=== PATIENT | female | born 1940 | race Caucasian/White ===

== ENCOUNTER → 2022-01-24 11:38 | Outpatient (CLI) | payer MEDICARE, SELFPAY | PROVIDERS: Referring Provider Internal Medicine; Visit Provider Internal Medicine | DX: R19.7 Diarrhea, unspecified (principal); R19.5 Other fecal abnormalities | CPT/HCPCS: 87177; 87329 ==

== ENCOUNTER → 2022-02-05 17:12 | Outpatient (CLI) | payer MEDICARE, SELFPAY ==
[2022-02-05 18:44] LABS: BUN Creatinine Ratio 31.9 (6-22); Blood Urea Nitrogen 23 mg/dL (7-17); Calcium 9.5 mg/dL (8.4-10.2); Carbon Dioxide 27 mmol/L (22-32); Chloride 102 mmol/L (98-107); Estimated Glomerular Filt Rate > 60 mL/min (>60); Glucose 97 mg/dL (80-110); HEMOLYSIS < 15 (0-50); Magnesium 1.7 mg/dL (1.6-2.3); Potassium 4.2 mmol/L (3.4-5.1); Sodium 140 mmol/L (137-145)
[2022-02-05 19:15] LABS: TSH w/ Reflex to FT4 1.63 uIU/mL (0.47-4.68)
== END ==
PROVIDERS: Referring Provider Internal Medicine Cardiovascular Disease; Visit Provider Internal Medicine Cardiovascular Disease
DX: E83.42 Hypomagnesemia (principal); I49.9 Cardiac arrhythmia, unspecified; I47.29 Other ventricular tachycardia
CPT/HCPCS: 36415; 80048; 83735; 84443

== ENCOUNTER 2022-09-13 09:13 | Emergency (ER) | payer MEDICARE, SELFPAY ==
--- NOTE | 2022-09-13 09:16 | DI.CT.S_ITS ---
PROCEDURE: CT HEAD/BRAIN WO CON INDICATIONS: fall, head injury, eliquis TECHNIQUE: Noncontrast 4.5 mm thick angled axial sections acquired from the foramen magnum to the vertex, with coronal and sagittal reformats. For radiation dose reduction, the following was used: automated exposure control, adjustment of mA and/or kV according to patient size. COMPARISON: None. FINDINGS: Image quality: Excellent. CSF spaces: Basal cisterns are patent. No extra-axial fluid collections. Ventricles are normal in size and shape. Brain: No midline shift. No intracranial masses or hemorrhage. Sandhu-white matter interface is normal. Moderate cerebral and cerebellar volume loss with multifocal white matter chronic ischemic change noted. Atherosclerotic calcification noted associated with cavernous segments of both internal carotid arteries. Skull and face: Calvarium and visualized facial bones are intact, without suspicious lesions. Sinuses: Visualized sinuses and mastoids are clear. IMPRESSION: Atrophy and chronic ischemic change without intracranial hemorrhage or mass effect Approved by: Hernan Rodriguez M.D. on 09/13/2022 at 9:16
[2022-09-13 09:22] VITALS: BP 96/45; PULSE 64; PULSE 66; RESP 14; TEMP 36.5
[2022-09-13 09:31] VITALS: PULSE 64; O2SAT 99
[2022-09-13 09:40] LABS: Add Manual Diff / Slide Review NO; Basophils Absolute Auto 0 /uL (0-100); Basophils Percent Auto 0.9 % (0-2); Eosinophils Absolute Auto 200 /uL (0-450); Eosinophils Percent Auto 5.1 % (2-4); Hematocrit 32.5 % (36-46); Hemoglobin 10.8 g/dL (12.0-16.0); Lymphocytes Absolute Auto 1000 /uL (1100-4500); Lymphocytes Percent Auto 22.4 % (25-40); Mean Corpuscular HGB Conc 33.2 % (30-36); Mean Corpuscular Hemoglobin 28.6 PG (26-34); Monocytes Absolute Auto 400 /uL (0-900); Monocytes Percent Auto 9.9 % (3-14); Neutrophils Absolute Auto 2800 /uL (1500-7000); Neutrophils Percent Auto 61.7 % (50-75); Platelet Count 147 X10^3/uL (150-400); Red Blood Cell Count 3.78 X10^6/uL (4.0-5.2); Red Cell Distribution Width 15.3 % (11.6-14.8); White Blood Cell Count 4.5 X10^3/uL (4.5-11.0)
--- NOTE | 2022-09-13 09:42 | ED_ITS ---
HPI - Fall General Chief Complaint: Fall Stated Complaint: Fall Time Seen by Provider: 09/13/22 09:14 Source: EMS Mode of arrival: EMS History of Present Illness HPI Narrative: 81-year-old female nonsmoker with history of AFib on anticoagulation comes by EMS for evaluation of a fall with head injury. She harry had less sleep than normal and was up packing for an upcoming trip when she tripped and fell striking the right side of her forehead. She is full recall of the event and denies any loss of consciousness, blurred vision, vomiting or trouble with speech. She has no neck or back pain. She denies chest pain or shortness of breath. She denies nausea, vomiting or diarrhea. She is activated as a modified trauma given fall with head injury on thinners Related Data Previous Rx's Medication Instructions Recorded cephalexin 500 mg capsule 500 mg PO BID #10 caps 09/13/22 Review of Systems Review of Systems Narrative: GENERAL: Denies chills, fatigue, malaise, fever, sweats. HEENT: Denies sinus pain, ear pain, sore throat, difficulty swallowing, dizziness. RESPIRATORY: Denies dyspnea, cough, wheezing, hemoptysis, sputum. CARDIOVASCULAR: Denies chest pain, palpitations, orthopnea, edema, GASTROINTESTINAL: Denies nausea, vomiting, abdominal pain, diarrhea, cons tipation, melena. : Denies dysuria, frequency, incontinence, hematuria, urinary retention. MUSCULOSKELETAL: denies weakness, joint pain, or bony pain SKIN: Denies rash, skin lesions, or other NEUROLOGIC: Denies weakness, headache, numbness, change in speech, confusion, seizures, incoordination. PSYCHIATRIC: No concerning psychosocial issues. 12 point review of systems is negative except for those stated above Patient History Social History Smoking Status: Unknown if ever smoked Smoking Status: Unknown if ever smoked Exam Narrative Exam Narrative: GENERAL: [81] year old patient appears stated age. Well-developed patient, in mild distress. GCS 15 HEAD: Small contusion over right eye, no large hematoma, no other abrasions or lacerations, no evidence of depressed skull fracture EYES: Pupils equal round and reactive. No hyphema Extraocular motions intact. No scleral icterus. No injection or drainage. ENT: Nose without bleeding, purulent drainage. No nasal septal hematoma or hemotympanum Throat without erythema, tonsillar hypertrophy or exudate. Airway patent. NECK: Trachea midline. Non tender CARDIOVASCULAR: Regular rate and rhythm without murmurs, gallops, or rubs. RESPIRATORY: Clear to auscultation. Breath sounds equal bilaterally. No wheezes, rales, or rhonchi. GASTROINTESTINAL: Abdomen soft, non-tender, nondistended. EXTREMITIES: No edema or joint tenderness. BACK: Nontender without deformity or crepitance. No flank tenderness. NEURO: AOx3. SKIN: No rash or erythema of visible areas Initial Vital Signs Initial Vital Signs: Vital Signs Temperature 97.7 F 09/13/22 09:22 Pulse Rate 66 09/13/22 09:22 Respiratory Rate 14 09/13/22 09:22 Blood Pressure 96/45 L 09/13/22 09:22 Course Orders Ordered: ED Orders 09/13/22 11:24 Urine Culture Stat Urine Microscopic Stat Discontinued Medications Sodium Chloride (Normal Saline 0.9%) 500 mls @ 1,000 mls/hr IV BOLUS ONE Stop: 09/13/22 09:45 Last Admin: 09/13/22 10:08 Dose: 1,000 mls/hr Documented By: NR Vital Signs Vital signs: Vital Signs - 8 hr 09/13/22 12:21 Pulse Rate 88 Respiratory Rate 14 Blood Pressure 113/65 Pulse Oximetry 96 Oxygen Delivery Method Room Air MDM - Fall Lab Data 09/13/22 09:10 09/13/22 09:10 Labs: Lab Results 09/13/22 09/13/22 09/13/22 Range/Units 09:10 09:10 11:24 WBC 4.5 (4.5-11.0) X10^3/uL RBC 3.78 L (4.0-5.2) X10^6/uL Hgb 10.8 L (12.0-16.0) g/dL Hct 32.5 L (36-46) % MCV 86.0 (80-100) fL MCH 28.6 (26-34) PG MCHC 33.2 (30-36) % RDW 15.3 H (11.6-14.8) % Plt Count 147 L (150-400) X10^3/uL Neut % (Auto) 61.7 (50-75) % Lymph % (Auto) 22.4 L (25-40) % Cook % (Auto) 9.9 (3-14) % Eos % (Auto) 5.1 H (2-4) % Baso % (Auto) 0.9 (0-2) % Neut # (Auto) 2800 (9825-6217) /uL Lymph # (Auto) 1000 L (8468-3210) /uL Cook # (Auto) 400 (0-900) /uL Eos # (Auto) 200 (0-450) /uL Baso # (Auto) 0 (0-100) /uL Sodium 137 (137-145) mmol/L Potassium 4.4 (3.4-5.1) mmol/L Chloride 104 (98-107) mmol/L Carbon Dioxide 28 (22-32) mmol/L BUN 31 H (7-17) mg/dL Creatinine 0.80 (0.52-1.04) mg/dL Estimated GFR > 60 (>60) mL/min BUN/Creatinine Ratio 38.8 H (6-22) Glucose 114 H (80-110) mg/dL Calcium 9.1 (8.4-10.2) mg/dL Magnesium 2.0 (1.6-2.3) mg/dL Total Bilirubin 0.6 (0.2-1.3) mg/dL AST 28 (14-36) IU/L ALT 21 (<35) IU/L Alkaline Phosphatase 51 (38-126) U/L Total Protein 6.4 (6.3-8.2) g/dL Albumin 3.8 (3.5-5.0) g/dL Globulin 2.6 (1.7-4.1) g/dL Albumin/Globulin Ratio 1.5 (1.0-2.8) Urine RBC 1-5/hpf (0-5/HPF) Urine WBC 5-10/hpf H (0-5/HPF) Ur Squamous Epith Cells 0-1 /hpf (0-5/HPF) Ur Transition Epith Cell 0-1/hpf (0-5/HPF) Amorphous Sediment 1+ Urine Bacteria Many (>30) H (None) Ur Culture Indicated? Specimen cultured Urine Dip Bedside Urine Glucose Negative Bedside Urine Bilirubin - Negative Bedside Urine Ketone - Negative Urine Specific Bradford 1.020 Bedside Urine Occult Blood + Bedside Urine pH 6.0 Bedside Urine Protein - Negative Bedside Urine Urobilinogen - Negative Bedside Urine Nitrite + Positive Bedside Urine Leukocytes ++ 125 Esterase MDM Narrative Medical decision making narrative: CC: 81-year-old female presents for evaluation of fall with head injury on thinners Complicating co-morbidities: Age, atrial fibrillation, anticoagulation Data collected from: Patient Medical records reviewed: Prior notes reviewed in our EMR Differential considered, but not limited to: Contusion versus hematoma versus intracranial hemorrhage versus other Exam documented above, pertinent findings include: GCS 15, alert and oriented x3, mild contusion above right eye Lab Test results independently reviewed as above. Pertinent findings: Independently reviewed EKG as above Imaging studies independently reviewed: Head CT with no evidence of bleed Discussion: Patient had unwitnessed ground level fall this morning when she was bending over trying to pack for an upcoming trip. She struck her head on the ground and is anticoagulated but had no loss of consciousness or vomiting, no other neurologic symptoms, imaging is unremarkable, she is ambulatory in the department in at baseline per family. Disposition: see below, along with detailed discharge instructions that have been reviewed with patient as well as indications for ED re-evaluation and additional outpatient follow up Discharge Plan Departure Patient Disposition: Home Clinical Impression: Acute UTI, Fall, Contusion of forehead Instructions: DI for Urinary Tract Infection (UTI), How to Prevent Falls Activity Restrictions/Additional Instructions: *You have been diagnosed with [ fall with forehead contusion and urinary tract infection. As we discussed your lab work and imaging is otherwise very reassuring] *What to do: *Please continue to take your regular medications as directed. [ x] New medication prescriptions sent to your pharmacy: [[facility] ] [ ] New medication written as a paper prescription [ ] No new medications given *Please follow up with your primary care provider in 2-3 days, call for an appointment. Let them know you were seen in the Emergency Department and that we ask that you be seen in follow up. We will electronically transmit a record of today's note if your PCP is in our system *If you do not have a primary care provider please contact the [facility] Resource line at [phone]. They will ask some questions about your medical history and help get you set up with a doctor in the community. *Return to Emergency Department if you should have any new, worsening or concerning symptoms, such as [fever greater than 101 F, shaking chills, worsening pain, persistent vomiting or other bothersome symptoms] Prescriptions: New cephalexin 500 mg capsule 500 mg PO BID Qty: 10 0RF Referrals: Miscellaneous,Doctor, MD [Primary Care Provider] - Stand Alone Forms: Patient Portal/API
[2022-09-13 09:50] LABS: Alanine Aminotransferase 21 IU/L (<35); Albumin 3.8 g/dL (3.5-5.0); Albumin Globulin Ratio 1.5 (1.0-2.8); Alkaline Phosphatase 51 U/L (38-126); Aspartate Aminotransferase 28 IU/L (14-36); BUN Creatinine Ratio 38.8 (6-22); Bilirubin Total 0.6 mg/dL (0.2-1.3); Blood Urea Nitrogen 31 mg/dL (7-17); Calcium 9.1 mg/dL (8.4-10.2); Carbon Dioxide 28 mmol/L (22-32); Chloride 104 mmol/L (98-107); Estimated Glomerular Filt Rate > 60 mL/min (>60); Globulin 2.6 g/dL (1.7-4.1); Glucose 114 mg/dL (80-110); HEMOLYSIS < 15 (0-50); Potassium 4.4 mmol/L (3.4-5.1); Sodium 137 mmol/L (137-145); Total Protein 6.4 g/dL (6.3-8.2)
[2022-09-13 10:00] VITALS: PULSE 62; RESP 12; O2SAT 100
[2022-09-13] MEDS: SODIUM CHLORIDE 0.9% 500 ML 1000 ML IV (10:08)
[2022-09-13 10:30] VITALS: PULSE 64; RESP 10; O2SAT 99
[2022-09-13 11:20] VITALS: BP 102/50; BP 104/59; BP 113/55; PULSE 70; PULSE 74; PULSE 79
[2022-09-13 11:46] LABS: Bacteria Urine Many (>30); RBC Urine 1-5/HPF (0-5/HPF); Squamous Epithelial Cell Urine 0-1 /HPF (0-5/HPF); WBC Urine 5-10/HPF (0-5/HPF)
[2022-09-13 11:47] LABS: Amorphous Sediment Urine 1+; Culture Indicated Urine Specimen Cultured; Transitional Epi Cells Urine 0-1/HPF (0-5/HPF)
--- NOTE | 2022-09-13 11:55 | PC.NURSE ---
Patient ambulated with walker
[2022-09-13 12:21] VITALS: BP 113/65; PULSE 88; RESP 14; O2SAT 96
== END 2022-09-13 12:22 | disposition home or self-care (01) ==
PROVIDERS: Emergency Provider Emergency Medicine
DX: S00.83XA Contusion of other part of head, initial encounter (principal); N39.0 Urinary tract infection, site not specified; R07.9 Chest pain, unspecified; W01.0XXA Fall on same level from slipping, tripping and stumbling without subsequent striking against object, initial encounter
CPT/HCPCS: 70450; 80053; 81003; 81015; 83735; 85025; 87077; 87086; 87186; 93005; 99283

== ENCOUNTER → 2023-04-06 12:43 | Outpatient (CLI) | payer OTHER, SELFPAY ==
[2023-04-06 13:26] LABS: Add Manual Diff / Slide Review NO; Basophils Absolute Auto 0 /uL (0-100); Basophils Percent Auto 0.6 % (0-2); Eosinophils Absolute Auto 100 /uL (0-450); Eosinophils Percent Auto 1.5 % (2-4); Hemoglobin 11.6 g/dL (12.0-16.0); Lymphocytes Absolute Auto 900 /uL (1100-4500); Lymphocytes Percent Auto 12.1 % (25-40); Mean Corpuscular HGB Conc 33.2 % (30-36); Mean Corpuscular Hemoglobin 30.3 PG (26-34); Mean Corpuscular Volume 91.2 fL (80-100); Monocytes Absolute Auto 300 /uL (0-900); Monocytes Percent Auto 4.1 % (3-14); Neutrophils Absolute Auto 6400 /uL (1500-7000); Neutrophils Percent Auto 81.7 % (50-75); Platelet Count 173 X10^3/uL (150-400); Red Blood Cell Count 3.84 X10^6/uL (4.0-5.2); Red Cell Distribution Width 17.5 % (11.6-14.8); White Blood Cell Count 7.8 X10^3/uL (4.5-11.0)
[2023-04-06 13:47] LABS: Hemoglobin A1C% w Est Avg Glu 8.8 % (4.0-6.0)
[2023-04-06 13:50] LABS: Alanine Aminotransferase 24 IU/L (<35); Albumin Globulin Ratio 1.4 (1.0-2.8); Alkaline Phosphatase 59 U/L (38-126); Aspartate Aminotransferase 23 IU/L (14-36); BUN Creatinine Ratio 21.2 (6-22); Blood Urea Nitrogen 18 mg/dL (7-17); Calcium 9.6 mg/dL (8.4-10.2); Carbon Dioxide 26 mmol/L (22-32); Chloride 103 mmol/L (98-107); Cholesterol 153 mg/dL (140-199); Estimated Glomerular Filt Rate > 60 mL/min (>60); Globulin 2.8 g/dL (1.7-4.1); Glucose 222 mg/dL (80-110); HDL Cholesterol 64 mg/dL (40-60); HEMOLYSIS < 15 (0-50); LDL Cholesterol Calculated 65 mg/dL (<100); Magnesium 1.9 mg/dL (1.6-2.3); Sodium 137 mmol/L (137-145); Total Protein 6.8 g/dL (6.3-8.2); Triglycerides 119 mg/dL (35-150)
[2023-04-06 13:52] LABS: Potassium 5.5 mmol/L (3.4-5.1)
[2023-04-06 14:21] LABS: TSH w/ Reflex to FT4 1.16 uIU/mL (0.47-4.68)
[2023-04-06 14:37] LABS: Vitamin B12 608 pg/mL (239-931)
[2023-04-06 14:47] LABS: Creatinine Urine Random 59.7 mg/dL
[2023-04-06 14:52] LABS: Microalbumi Creatinin Ratio Ur 194.3 ug/mg CR (<30); Microalbumin Urine Random 11.6 mg/dL (0-1.6)
[2023-04-06 15:03] LABS: Vitamin D 25 Hydroxy (D3) 52.2 ng/mL (30.0-100.0)
== END ==
PROVIDERS: PCP Family Medicine; Referring Provider Family Medicine; Visit Provider Family Medicine
DX: R53.83 Other fatigue (principal); E11.9 Type 2 diabetes mellitus without complications; K52.839 Microscopic colitis, unspecified; F32.A Depression, unspecified; R19.7 Diarrhea, unspecified; I50.20 Unspecified systolic (congestive) heart failure; I25.10 Atherosclerotic heart disease of native coronary artery without angina pectoris; I49.9 Cardiac arrhythmia, unspecified; I48.91 Unspecified atrial fibrillation; E11.69 Type 2 diabetes mellitus with other specified complication
CPT/HCPCS: 36415; 80053; 80061; 82043; 82306; 82570; 82607; 83036; 83735; 84443; 85025

== ENCOUNTER → 2023-04-13 12:59 | Outpatient (CLI) | payer OTHER, SELFPAY ==
[2023-04-13 14:05] LABS: BUN Creatinine Ratio 27.8 (6-22); Blood Urea Nitrogen 30 mg/dL (7-17); Calcium 9.6 mg/dL (8.4-10.2); Carbon Dioxide 26 mmol/L (22-32); Chloride 103 mmol/L (98-107); Estimated Glomerular Filt Rate 52 mL/min (>60); Glucose 211 mg/dL (80-110); HEMOLYSIS < 15 (0-50); Potassium 4.6 mmol/L (3.4-5.1); Sodium 136 mmol/L (137-145)
[2023-04-13 14:54] LABS: Ur Creatinine Normal (Normal); Ur Specific Gravity Normal (Normal); Urine pH Normal (Normal)
[2023-04-13 14:55] LABS: UR Morphine/Opiate cutoff 300 Negative (Negative); Urine Amphetamines Negative (Negative); Urine Cocaine Negative (Negative); Urine Methamphetamines Negative (Negative); Urine Tetrahydrocannabinol Negative (Negative)
[2023-04-13 14:56] LABS: Urine Barbiturates Negative (Negative); Urine Benzodiazepines Negative (Negative); Urine MDMA Negative (Negative); Urine Methadone Negative (Negative); Urine Oxycodone Positive (Negative); Urine Phencyclidine Negative (Negative); Urine Tricyclic Antidepressant Negative (Negative)
== END ==
PROVIDERS: PCP Family Medicine; Referring Provider Family Medicine; Visit Provider Family Medicine
DX: M54.2 Cervicalgia (principal); E87.5 Hyperkalemia; E11.9 Type 2 diabetes mellitus without complications; G89.29 Other chronic pain
CPT/HCPCS: 80048; 80305

== ENCOUNTER → 2023-07-06 12:24 | Outpatient (CLI) | payer OTHER, SELFPAY ==
--- NOTE | 2023-07-06 12:25 | DI.ECHO.S_ITS ---
[facility]+ [facility] : : [address] : : [place] : : [id number] : : Phone: [phone] Echocardiogram Report + + :Name: KAY SIFUENTES Study Date: 07/06/2023 Height: 59 in : :[facility] ReadingLocation: Weight: 122 lb : : Gender: Female BSA: 1.5 m2 : :: 1940 Age: 82 yrs BP: 113/68 mmHg: :Reason For Study: CORONARY ARTERY DISEASE : :Ordering Physician: MAGDALENE CHAKRABORTY Performed By: Je Morelos : :Referring: MAGDALENE CHAKRABORTY : + + Interpretation Summary 1. The left ventricular contractility is severely compromised. Estimated ejection fraction is approximately 25 to 30% with global hypokinesis. No left ventricular hypertrophy is identified. Grade 1 diastolic dysfunction is appreciated. 2. The right ventricular contractility appears to be mildly compromised. 3. There is left atrial enlargement present. All other cardiac chambers appears to be grossly normal. 4. There is moderate fibrocalcific changes of the aortic valve involving the noncoronary cusp. Mean aortic valvular gradient was 8.8 mmHg. 5. No obvious intracardiac shunts noted. 6. No obvious intracardiac masses nor thrombi appreciated. 7. No hemodynamically significant pericardial effusion identified. Conclusion: Biventricular systolic dysfunction with no significant valvular abnormalities. Paroxysmal atrial fibrillation noted. Procedure: A two-dimensional transthoracic echocardiogram with color flow and Doppler was performed. The study quality was technically adequate. There is no prior echocardiogram noted for this patient. The patient was in atrial fibrillation with heart rates between 60-84 bpm during the exam. Left Ventricle: The left ventricle is normal in size and wall thickness. The ejection fraction is estimated to be 25-30%. Right Ventricle: The right ventricle is not well visualized. Right ventricular systolic function is mildly reduced. Atria: The left atrium is mildly dilated. Right atrial size is normal. The interatrial septum grossly appears intact with no obvious evidence for an atrial septal defect. Mitral Valve: The mitral valve is normal in structure and function. There is no mitral valve stenosis. There is trace mitral regurgitation. Aortic Valve: There is moderate aortic valve sclerosis. There is mild aortic stenosis. The peak aortic velocity is 2.02 m/sec. The aortic valve mean gradient is 8.8 mmHg. No aortic regurgitation is present. Tricuspid Valve: The tricuspid valve is not well visualized, but is grossly normal. There is no tricuspid stenosis. There is trace tricuspid regurgitation. The right ventricular systolic pressure is estimated to be at least 23 mmHg based on an estimated right atrial pressure of 3 mm Hg. Pulmonic Valve: The pulmonic valve is not well visualized. There is no pulmonic valvular stenosis. There is a trace or physiologic amount of pulmonic regurgitation. Great Vessels: The aortic root is normal size. The dimensions of the ascending aorta are normal. The IVC is of normal diameter and collapses greater than 50% with a sniff. This suggests a low right atrial pressure of 3 mm Hg. Pericardium/ Pleura There is no pericardial effusion. There is no pleural effusion. MMode/2D Measurements & Calculations LVIDd: 4.9 cm LVOT diam: 1.7 cm LVIDs: 4.3 cm Ao root diam: 2.8 cm FS: 12.3 % asc Aorta Diam: 2.8 cm IVSd: 0.75 cm Ao Arch Diam (Prox Trans): 2.3 cm LVPWd: 0.70 cm LV moore. diameter/BSA (cm/m^2): 3.3 LV sys. diameter/BSA (cm/m^2): 2.9 LA A2 area: 17.0 cm2 RA long axis: 4.5 cm LA A4 area: 16.4 cm2 RA area: 10.8 cm2 LA length (vol): 4.6 cm RA vol: 22.0 ml LA vol: 51.9 ml RA : 14.7 ml/m2 LA vol index: 34.7 ml/m2 IVC diam: 1.6 cm TAPSE: 1.6 cm Doppler Measurements & Calculations Ao V2 max: 201.9 cm/sec LVOT Max Jorge: 99.9 cm/sec Ao V2 mean: 141.0 cm/sec LV V1 max P.1 mmHg Ao max P.6 mmHg LV V1 VTI: 21.8 cm Ao mean P.8 mmHg DUSTIN(I,D): 1.1 cm2 Ao V2 VTI: 44.4 cm DUSTIN(V,D): 1.2 cm2 sev ratio: 0.49 DUSTIN indexed to BSA (cm^2/m^2): 0.77 MV E max jorge: 57.8 cm/sec TR max jorge: 224.1 cm/sec MV A max jorge: 87.2 cm/sec TR max P.1 mmHg MV E/A: 0.66 PA V2 max: 70.7 cm/sec Med Peak E' Jorge: 4.7 cm/sec PA V2 mean: 51.3 cm/sec E/E' med: 12.4 PA mean P.1 mmHg Lat Peak E' Jorge: 4.8 cm/sec PA pr(Accel): 32.8 mmHg E/E' lat: 12.1 E/e' average: 12.2 MV dec time: 0.17 sec SV(LVOT): 50.9 ml Reading Physician:
== END ==
LOC: ECHO 12:24
PROVIDERS: PCP Family Medicine; Referring Provider Internal Medicine; Visit Provider Internal Medicine
DX: I50.22 Chronic systolic (congestive) heart failure (principal); I35.8 Other nonrheumatic aortic valve disorders; I35.0 Nonrheumatic aortic (valve) stenosis
CPT/HCPCS: 93306

== ENCOUNTER → 2023-07-07 10:10 | Outpatient (CLI) | payer OTHER, SELFPAY ==
[2023-07-07 11:17] LABS: Add Manual Diff / Slide Review NO; Basophils Absolute Auto 0 /uL (0-100); Basophils Percent Auto 0.4 % (0-2); Eosinophils Absolute Auto 100 /uL (0-450); Eosinophils Percent Auto 0.9 % (2-4); Hematocrit 39.9 % (36-46); Hemoglobin 13.1 g/dL (12.0-16.0); Lymphocytes Absolute Auto 1600 /uL (1100-4500); Lymphocytes Percent Auto 16.2 % (25-40); Mean Corpuscular HGB Conc 32.7 % (30-36); Mean Corpuscular Hemoglobin 30.9 PG (26-34); Mean Corpuscular Volume 94.4 fL (80-100); Monocytes Absolute Auto 600 /uL (0-900); Monocytes Percent Auto 5.7 % (3-14); Neutrophils Absolute Auto 7500 /uL (1500-7000); Neutrophils Percent Auto 76.8 % (50-75); Platelet Count 198 X10^3/uL (150-400); Red Blood Cell Count 4.22 X10^6/uL (4.0-5.2); Red Cell Distribution Width 14.6 % (11.6-14.8); White Blood Cell Count 9.7 X10^3/uL (4.5-11.0)
[2023-07-07 12:31] LABS: Alanine Aminotransferase 20 IU/L (<35); Albumin 4.6 g/dL (3.5-5.0); Alkaline Phosphatase 53 U/L (38-126); Aspartate Aminotransferase 24 IU/L (14-36); BUN Creatinine Ratio 30.1 (6-22); Bilirubin Total 1.1 mg/dL (0.2-1.3); Blood Urea Nitrogen 34 mg/dL (7-17); Calcium 9.5 mg/dL (8.4-10.2); Carbon Dioxide 22 mmol/L (22-32); Chloride 106 mmol/L (98-107); Cholesterol 106 mg/dL (140-199); Estimated Glomerular Filt Rate 49 mL/min (>60); Globulin 2.3 g/dL (1.7-4.1); Glucose 154 mg/dL (80-110); HDL Cholesterol 57 mg/dL (40-60); HEMOLYSIS < 15 (0-50); LDL Cholesterol Calculated 22 mg/dL (<100); Potassium 5.2 mmol/L (3.4-5.1); Sodium 137 mmol/L (137-145); Total Protein 6.9 g/dL (6.3-8.2); Triglycerides 136 mg/dL (35-150)
[2023-07-07 12:40] LABS: HEMOLYSIS < 15 (0-50); Iron 74 ug/dL (37-170)
[2023-07-07 12:52] LABS: Percent Iron Saturation 18 % (15-50); Total Iron Binding Capacity 404 ug/dL (265-497); Transferrin 315 mg/dL (206-381)
== END ==
PROVIDERS: PCP Family Medicine; Referring Provider Internal Medicine; Visit Provider Internal Medicine
DX: I48.0 Paroxysmal atrial fibrillation (principal); E11.9 Type 2 diabetes mellitus without complications; I25.118 Atherosclerotic heart disease of native coronary artery with other forms of angina pectoris; D64.9 Anemia, unspecified
CPT/HCPCS: 36415; 80053; 80061; 83036; 83540; 83550; 84443; 85025

== ENCOUNTER → 2023-07-28 10:41 | Outpatient (CLI) | payer OTHER, SELFPAY ==
--- NOTE | 2023-07-28 10:43 | DI.NM.S_ITS ---
PROCEDURE: NM JESUS PERF SPECT R&S PHARM Rest and pharmacological stress myocardial perfusion SPECT with gated imaging and ejection fraction RADIOPHARMACEUTICAL: 12.2 mCi Tc-99m tetrafosmin IV at rest and 25.4 mCi Tc-99m tetrafosmin IV at peak effect of pharmacological stress. A [id number] was performed. INDICATIONS: [facility] coronary artery disease TECHNIQUE: Radiopharmaceutical was injected at peak stress test, and also at rest. SPECT images were obtained. SPECT myocardial perfusion images were displayed in short axis, horizontal long axis, and vertical long axis views. Gated images were reviewed using [employer] software. COMPARISON: None. CARDIAC STRESS: A pharmacologic stress test was performed under the supervision of an attending staff, using an infusion of regadenoson 0.4 mg IV. Hemodynamic data: There is normal blood pressure and heart rate response to pharmacologic stress. Symptoms: The patient denied anginal chest pain. EKG: No diagnostic changes of ischemia; occasional PVCs. FINDINGS: Raw data: There is good myocardial uptake of radiotracer. No significant motion artifacts. The raw images demonstrate significant bowel uptake of the tracer along with diaphragmatic attenuation. Vrth-oj-jizlb ratio is 0.44 (normal is less than 0.38 for tetrafosmin tracer). Left ventricle function: Gated images demonstrate normal left ventricular wall thickening however the LV size and shape are altered due to bowel uptake of the tracer near the inferior wall making determination of segmental wall motion abnormalities difficult. No transient ischemic dilation; TID is 0.73 (normal less than 1.3). Left ventricle resting end diastolic volume is 142 mL. Left ventricle stress ejection fraction is 59%; normal range is above 45%. Myocardial perfusion: There is a large size, moderate to severe intensity inferior, inferolateral and apical wall defect. No reversible perfusion defects. IMPRESSION: Abnormal but very poor quality study. The large size, moderate to severe intensity inferior, inferolateral and apical wall defect may be consistent with prior infarction however there is significant bowel uptake and diaphragmatic attenuation near these henning. Unfortunately, no prone images were obtained. LV size and segmental wall motion are difficult to assess due to artifacts. Dictated by: Maylin Delgado D.O. on 07/28/2023 at 16:15 Approved by: Maylin Delgado D.O. on 07/28/2023 at 16:21
== END ==
LOC: NUCM 10:41
PROVIDERS: PCP Family Medicine; Referring Provider Internal Medicine; Visit Provider Internal Medicine
DX: I25.118 Atherosclerotic heart disease of native coronary artery with other forms of angina pectoris (principal); R94.39 Abnormal result of other cardiovascular function study
CPT/HCPCS: 78452; 93017; A9502; J2785

== ENCOUNTER → 2023-09-11 11:51 | Outpatient (CLI) | payer OTHER, SELFPAY ==
--- NOTE | 2023-09-11 11:52 | DI.RAD.S_ITS ---
PROCEDURE: XR CERVICAL SPINE 2V OR 3V INDICATIONS: neck pain TECHNIQUE: 4 view(s) of the cervical spine were acquired. COMPARISON: None. FINDINGS: Bones: No fractures. Grade 1 anterolisthesis of C5 on C6. Multilevel disc height loss and facet arthropathy. The lateral masses of C1 appear intact on the odontoid view. No suspicious bony lesions. Multilevel anterior disc osteophytes. The bones are diffusely osteopenic. Sternotomy wires are seen. Soft tissues: No prevertebral soft tissue swelling. Mediastinal clips are noted. Calcified aortic arch. The IMPRESSION: 1. No acute fracture. 2. Grade 1 anterolisthesis of C5 on C6. 3. Multilevel disc height loss and facet arthropathy. Dictated by: Garry Roth M.D. on 09/11/2023 at 15:06 Approved by: Garry Roth M.D. on 09/11/2023 at 15:13
== END ==
PROVIDERS: PCP Family Medicine; Referring Provider Family Medicine; Visit Provider Family Medicine
DX: M47.812 Spondylosis without myelopathy or radiculopathy, cervical region (principal); M43.12 Spondylolisthesis, cervical region; M54.2 Cervicalgia; G89.29 Other chronic pain
CPT/HCPCS: 72040

== ENCOUNTER → 2023-12-04 14:12 | Outpatient (CLI) | payer OTHER, SELFPAY ==
[2023-12-04 15:59] LABS: BUN Creatinine Ratio 25.5 (6-22); Blood Urea Nitrogen 25 mg/dL (7-17); Calcium 9.6 mg/dL (8.4-10.2); Carbon Dioxide 25 mmol/L (22-32); Chloride 102 mmol/L (98-107); Estimated Glomerular Filt Rate 58 mL/min (>60); Glucose 180 mg/dL (80-110); HEMOLYSIS < 15 (0-50); Sodium 134 mmol/L (137-145)
== END ==
PROVIDERS: PCP Family Medicine; Referring Provider Internal Medicine; Visit Provider Internal Medicine
DX: I50.22 Chronic systolic (congestive) heart failure (principal)
CPT/HCPCS: 36415; 80048; 83735

== ENCOUNTER → 2024-03-02 11:37 | Outpatient (CLI) | payer MEDICARE, SELFPAY | PROVIDERS: PCP Family Medicine; Visit Provider Nurse Practitioner Family | DX: R30.0 Dysuria (principal) | CPT/HCPCS: 87077; 87086; 87210 ==

== ENCOUNTER → 2024-03-26 09:55 | Outpatient (CLI) | payer MEDICARE, SELFPAY ==
[2024-03-26 10:46] LABS: Appearance Urine UA CLEAR; Bilirubin Urine UA NEGATIVE (NEGATIVE); Color Urine UA YELLOW; Glucose Urine UA 3+ g/dL (Negative); Ketones Urine UA NEGATIVE (NEGATIVE); Leukocyte Esterase Urine UA 1+ (NEGATIVE); Nitrite Urine UA NEGATIVE (Negative); Occult Blood Urine UA NEGATIVE (Negative); Protein Urine UA NEGATIVE (Negative); Specific Gravity Urine UA <=1.005 (1.000-1.035); Urobilinogen Urine UA 0.2 E.U./dL (0.2)
[2024-03-26 10:47] LABS: pH Urine UA 5.5 (4.5-8.0)
[2024-03-26 10:48] LABS: Urine Volume 10mL (spun)
[2024-03-26 10:50] LABS: Bacteria Urine None Seen; Culture Indicated Urine Specimen Cultured; RBC Urine None Seen (0-5/HPF); Squamous Epithelial Cell Urine 0-1 /HPF (0-5/HPF); WBC Urine 5-10/HPF (0-5/HPF)
== END ==
LOC: LAB 09:56
PROVIDERS: PCP Family Medicine; Referring Provider Family Medicine; Visit Provider Family Medicine
DX: N39.0 Urinary tract infection, site not specified (principal)
CPT/HCPCS: 81001; 87077; 87086

== ENCOUNTER 2024-07-04 17:52 | Emergency (ER) | payer MEDICARE, SELFPAY ==
[2024-07-04 18:08] VITALS: BP 139/63; PULSE 78; RESP 17; TEMP 37.1; O2SAT 96; BMI 26.9
--- NOTE | 2024-07-04 18:21 | DI.RAD.S_ITS ---
PROCEDURE: XR CHEST 1V INDICATIONS: Chest Pain TECHNIQUE: One view of the chest was acquired. COMPARISON: [facility], CR, XR CHEST 2 VIEWS, 12/11/2023, 17:22. FINDINGS: Surgical changes and devices: Sternal wires and pacemaker are present. Lungs and pleura: Lungs are clear. No pleural effusions or pneumothorax. Mediastinum: Mediastinal contours appear normal. Heart size is normal. Bones and chest wall: No suspicious bony lesions. Overlying soft tissues appear unremarkable. IMPRESSION: No acute pulmonary process. Dictated by: Karishma Comer M.D. on 07/04/2024 at 19:49 Approved by: Karishma Comer M.D. on 07/04/2024 at 19:49
--- NOTE | 2024-07-04 18:21 | EKG_ITS ---
[address] [address] Test Date: 2024-07-04 Pat Name: Cassidy Pickering Department: Room: Gender: Female Crts: ROHAN : 1940 Requested By: Order Number: [id number] Reading MD: Naresh Mojica Measurements Intervals Pike Rate: 80 P: 29 ID: [id number] QRS: 34 QRSD: 92 T: 125 QT: 364 QTc: 419 Interpretive Statements Sinus rhythm with frequent premature ventricular complexes Anterior infarct , age undetermined Electronically Signed On 07-06-2024 16:20:01 PDT by Naresh Mojica
[2024-07-04 18:44] LABS: Add Manual Diff / Slide Review NO; Basophils Absolute Auto 100 /uL (0-100); Eosinophils Absolute Auto 100 /uL (0-450); Eosinophils Percent Auto 2.1 % (2-4); Hematocrit 41.6 % (36-46); Hemoglobin 13.6 g/dL (12.0-16.0); Lymphocytes Absolute Auto 1500 /uL (1100-4500); Lymphocytes Percent Auto 21.8 % (25-40); Mean Corpuscular HGB Conc 32.7 % (30-36); Mean Corpuscular Hemoglobin 28.3 PG (26-34); Mean Corpuscular Volume 86.6 fL (80-100); Monocytes Absolute Auto 600 /uL (0-900); Monocytes Percent Auto 8.3 % (3-14); Neutrophils Absolute Auto 4500 /uL (1500-7000); Neutrophils Percent Auto 66.8 % (50-75); Platelet Count 192 X10^3/uL (150-400); White Blood Cell Count 6.8 X10^3/uL (4.5-11.0)
[2024-07-04 18:50] LABS: INR 1.1 (0.9-1.3)
[2024-07-04 18:52] LABS: PTT Partial Thromboplastin Tim 36 SECONDS (25.1-36.5)
[2024-07-04 18:57] LABS: Lactate (Lactic Acid) 1.6 mmol/L (0.7-2.1)
[2024-07-04 18:58] LABS: Alanine Aminotransferase 24 IU/L (<35); Albumin 4.4 g/dL (3.5-5.0); Albumin Globulin Ratio 1.5 (1.0-2.8); Alkaline Phosphatase 70 U/L (38-126); Aspartate Aminotransferase 28 IU/L (14-36); Bilirubin Total 1.3 mg/dL (0.2-1.3); Blood Urea Nitrogen 33 mg/dL (7-17); Calcium 9.5 mg/dL (8.4-10.2); Carbon Dioxide 25 mmol/L (22-32); Chloride 104 mmol/L (98-107); Creatine Kinase 37 U/L (30-135); Estimated Glomerular Filt Rate 57 mL/min (>60); Glucose 229 mg/dL (70-99); HEMOLYSIS 44 (0-50); Lipase 180 U/L (23-300); Magnesium 2.3 mg/dL (1.6-2.3); Potassium 4.8 mmol/L (3.4-5.1); Sodium 139 mmol/L (137-145); Total Protein 7.4 g/dL (6.3-8.2)
[2024-07-04 19:10] LABS: NT-proBNP (BNP-Adult 18+) 705 pg/mL (<450); Troponin I 0.014 ng/mL (0.01-0.034)
[2024-07-05 00:39] VITALS: BP 174/78; PULSE 75; RESP 18; O2SAT 98
== END 2024-07-05 00:41 | disposition left against medical advice (07) ==
PROVIDERS: Emergency Medicine; Emergency Provider Emergency Medicine; PCP Family Medicine
DX: R07.9 Chest pain, unspecified (principal)
CPT/HCPCS: 36415; 71045; 80053; 82550; 83605; 83690; 83735; 83880; 84484; 85025; 85610; 85730; 93005; 99283

== ENCOUNTER → 2024-09-05 13:50 | Outpatient (CLI) | payer MEDICARE, SELFPAY ==
--- NOTE | 2024-09-05 13:51 | DI.ECHO.S_ITS ---
[facility] : : [address] : : [place] : : [address] : : Phone: [phone] Echocardiogram Report + + :Name: KAY SIFUENTES Study Date: 09/05/2024 Height: 60 in : :Hospital ReadingLocation: Weight: 136 lb: : Gender: Female BSA: 1.6 m2 : :: 1940 Age: 83 yrs BP: 99/57 mmHg: :Reason For Study: CHRONIC SYSTOLIC HEART FAILURE : :Ordering Physician: MAGDALENE CHAKRABORTY Performed By: Debi Esquivel : :Referring: MAGDALENE CHAKRABORTY : + + Interpretation Summary 1. Severely compromised LV contractility with EF 25-30%. Severe global hypokinesis. No LVH. Indeterminate diastolic function. 2. Mildly compromised RV contractility. 3. Mild LAE 4. Mild MR. 5. Moderate low flow low gradient with peak velocity 2.4 m/sec and dimensionless index 0.28. 6. Trace to mild TR with estimated PSAP 18 mmHg. 7. No obvious intracardiac shunts. 8. Pacemaker wires noted. 9. No hemodynamically significant pericardial effusion. 10. Low right sided filling pressures. Conclusion: Severe LV systolic dysfunction with mild to moderate valvular heart disease. When compared with previous study, no significant changes have occurred. Procedure: A two-dimensional transthoracic echocardiogram with color flow and Doppler was performed. The study quality was technically adequate. Comparison is made with the echocardiogram of 07/06/2023. The patient was in sinus rhythm with heart rates between 65-73 bpm during the exam. Left Ventricle: The left ventricle is mildly dilated. There is normal left ventricular wall thickness. The ejection fraction is estimated to be 25-30%. Right Ventricle: The right ventricle is normal size. Right ventricular systolic function is mildly reduced. Atria: The left atrium is mildly dilated. Right atrial size is normal. There is no Doppler evidence for an interatrial shunt. Mitral Valve: There is mild mitral annular calcification. There is mild mitral regurgitation. Aortic Valve: The aortic valve is trileaflet. The aortic valve is mildly calcified. There is moderate aortic valve sclerosis. The calculated aortic valve area is 0.89 cm2. The aortic valve mean gradient is 9.8 mmHg. There is trace aortic regurgitation. Tricuspid Valve: The tricuspid valve leaflets are thin and pliable. There is mild tricuspid regurgitation. Pulmonic Valve: The pulmonic valve leaflets are thin and pliable; valve motion is normal. There is mild pulmonic regurgitation. Great Vessels: The aortic root is normal size. The dimensions of the ascending aorta are normal. The IVC is of normal diameter and collapses greater than 50% with a sniff. This suggests a low right atrial pressure of 3 mm Hg. Pericardium/ Pleura There is no pericardial effusion. There is no pleural effusion. MMode/2D Measurements & Calculations LVIDd: 5.3 cm LVOT diam: 2.0 cm LVIDs: 4.7 cm Ao root diam: 3.1 cm FS: 11.4 % asc Aorta Diam: 2.4 cm EPSS: 2.0 cm Ao Arch Diam (Prox Trans): 2.5 cm IVSd: 0.68 cm LVPWd: 0.62 cm LV moore. diameter/BSA (cm/m^2): 3.3 LV sys. diameter/BSA (cm/m^2): 3.0 LA A2 area: 17.2 cm2 RA long axis: 4.2 cm LA A4 area: 16.6 cm2 RA area: 10.1 cm2 LA length (vol): 4.4 cm RA vol: 20.9 ml LA vol: 55.2 ml RA : 13.2 ml/m2 LA vol index: 34.8 ml/m2 IVC diam: 1.3 cm RVD1 (basal): 3.4 cm TAPSE: 1.4 cm Doppler Measurements & Calculations Ao V2 max: 201.2 cm/sec LVOT Max Jorge: 58.7 cm/sec Ao V2 mean: 141.2 cm/sec LV V1 max P.4 mmHg Ao max P.1 mmHg LV V1 VTI: 12.3 cm Ao mean P.8 mmHg DUSTIN(I,D): 0.85 cm2 Ao V2 VTI: 44.2 cm DUSTIN(V,D): 0.89 cm2 sev ratio: 0.28 DUSTIN indexed to BSA (cm^2/m^2): 0.54 MV E max jorge: 65.6 cm/sec TR max jorge: 213.3 cm/sec MV A max jorge: 107.7 cm/sec TR max P.2 mmHg MV E/A: 0.61 PA V2 max: 65.2 cm/sec Med Peak E' Jorge: 8.2 cm/sec PA V2 mean: 42.4 cm/sec E/E' med: 8.0 PA mean P.82 mmHg Lat Peak E' Jorge: 6.6 cm/sec PA pr(Accel): 35.3 mmHg E/E' lat: 10.0 E/e' average: 9.0 MV dec time: 0.21 sec SV(LVOT): 37.5 ml Reading Physician:TACO
== END ==
LOC: ECHO 13:50
PROVIDERS: PCP Family Medicine; Referring Provider Family Medicine; Visit Provider Internal Medicine
DX: I50.22 Chronic systolic (congestive) heart failure (principal); I08.1 Rheumatic disorders of both mitral and tricuspid valves
CPT/HCPCS: 93306

== ENCOUNTER → 2024-11-11 16:44 | Outpatient (CLI) | payer MEDICARE, SELFPAY | PROVIDERS: PCP Family Medicine; Visit Provider Chiropractor | DX: N39.41 Urge incontinence (principal); N39.0 Urinary tract infection, site not specified | CPT/HCPCS: 87077; 87086; 87186 ==

== ENCOUNTER → 2025-01-06 13:47 | Outpatient (CLI) | payer MEDICARE, SELFPAY ==
--- NOTE | 2025-01-06 13:48 | DI.NM.S_ITS ---
PROCEDURE: NM JESUS PERF SPECT R&S PHARM Rest and pharmacological stress myocardial perfusion SPECT with gated imaging and ejection fraction RADIOPHARMACEUTICAL: 25.5 mCi Tc-99m tetrafosmin IV at rest and 25.9 mCi Tc-99m tetrafosmin IV at peak effect of pharmacological stress. [id number] was performed. INDICATIONS: Coronary artery disease TECHNIQUE: Radiopharmaceutical was injected at peak stress test, and also at rest. SPECT images were obtained. SPECT myocardial perfusion images were displayed in short axis, horizontal long axis, and vertical long axis views. Gated images were reviewed using [employer] software. COMPARISON: None. CARDIAC STRESS: A pharmacologic stress test was performed under the supervision of an attending staff, using an infusion of regadenoson 0.4 mg IV. Hemodynamic data: There is normal blood pressure and heart rate response to pharmacologic stress. Symptoms: The patient denied anginal chest pain. EKG: No diagnostic changes of ischemia; no ectopy. FINDINGS: Raw data: There is good myocardial uptake of radiotracer. No significant motion artifacts. Left ventricle function: Gated images demonstrate probable hypokinesis of the inferior, inferolateral and apical henning. No transient ischemic dilation; TID is 0.84 (normal less than 1.3). Left ventricle resting end diastolic volume is 103 mL. Left ventricle stress ejection fraction is 38%; normal range is above 45%. Myocardial perfusion: There is a large sized, moderate to severe intensity fixed inferior, inferolateral, distal inferoseptal and apical wall defect. No reversible perfusion defects. IMPRESSION: Abnormal study without reversible perfusion defects. Large fixed defect suggesting prior infarct in the inferior, inferolateral, distal inferoseptal and apical henning suggesting prior infarct. The gated images were of poor quality however suspect that there is corresponding hypokinesis to the above-mentioned henning. Calculated ejection fraction 38%. Dictated by: Maylin Delgado D.O. on 01/11/2025 at 17:09 Approved by: Maylin Delgado D.O. on 01/11/2025 at 17:12
== END ==
LOC: NUCM 13:48
PROVIDERS: PCP Family Medicine; Referring Provider Internal Medicine; Visit Provider Internal Medicine
DX: R94.39 Abnormal result of other cardiovascular function study (principal); I25.119 Atherosclerotic heart disease of native coronary artery with unspecified angina pectoris
CPT/HCPCS: 78452; 93017; A9502; J2785

== ENCOUNTER 2025-02-15 11:29 | Emergency (ER) | payer MEDICARE, SELFPAY ==
--- OUTSIDE RECORDS SUMMARY | 2024-01-05 06:56 | XMS_ITS | Continuity of Care Document ---
Author Organization [facility] Address [address] [place] [address] Phone Care Team Providers Care Tile Presser Name Role Phone Jessa Tse MD Unavailable Unavailable Allergies, Adverse Reactions, Alerts Substance Reaction Status Criticality No Known Allergies Active No Inform ation Medications Medication Instructions Dosage Effective Dates (start - stop) Status Comments Lipitor 20 mg tablet take 1 tablet by oral route every day 20 MG - Active Januvia 50 mg tablet take 2 tablet by oral route every day 100 MG - Active Entresto 24 mg-26 mg tablet take 1 tablet by oral route 2 times every day 1.00 tablet - Active metformin 500 mg tablet take 1 tablet by oral route 2 times every day with morning and evening meals 500 MG - Active Zoloft 50 mg tablet take 1 tablet by ora l route 2 times every day 50 MG - Active Advance Directives Directive Yes / No Effective Date File Name No Information Encounters Encounter Description Practice Location Reason(s) For Visit Diagnoses Date Provider [facility], [address] [place] [address], [facility], tel:[phone] [place] No Information 4 Dedrick Germain. [facility], [address] [place], [place], [facility], . tel:[phone] [facility], [address] [place], [address], tel:[phone] [facility] eye health (chief complaint) Other secondary cataract, right eyeOther secondary cataract, left eyeNodular corneal degeneration, right eyePuckering of macula, right eyeNonexudative age-related macular degeneration, bilateral, intermediate dry stageType 2 diabetes mellitus without complications 3 Alexander Jessa. [facility], [address] [place], [address], [place]. tel:[phone] [facility], [address] [place] [address], [address], [place] tel:[phone] [place] 3wk cat post op (chief complaint) Presence of intraocular lens Apr- 1 Alexander Jessa. [facility], [facility] [place], [address], [place]. tel:[phone] [facility], [address] [place] [address], [address], [place] tel:[phone] [place] 1 Day Cataract Post Op (chief complaint) Presence of intraocular lens Mar- 1 [facility]. [facility], [address] [facility] [address], [place], [address], [place]. tel:[phone] [facility], [address] [place] [address], [place], [address], [place] tel:[phone] [facility] No Information 1 Alexander Jessa. [facility], [facility] [place], [address], [place]. tel:[phone] [facility], [address] [place] [address] [place], [address], [place] tel:[phone] [place] 8 month cataract postop (chief complaint) Presence of intraocular lensCombined forms of age-related cataract, left eye 0 Alexander Jessa. [facility], [facility] [facility] [place], [address], [place]. tel:[phone] [facility], [address] [place] [address] [place], [address], [place] tel:[phone] [place] No Information Nov-3 -202 0 Alexander Jessa. [facility], [address] [place] [address] [place], [address], [place]. tel:[phone] [facility], [address] [place] [address], [place], [address], [place] tel:[phone] [place] 1 day cat p/o OD (chief complaint) Presence of intraocular lens 0 Palmer Leticia. [facility], [address], [place], [place], [facility], . tel:[phone] [facility], [address] [place] [address], [facility], tel:[phone] [facility] No Information 0 Dedrick Jessa. [facility], [address] [place], [place], [facility], . tel:[phone] [facility], [address] [place] [address], [facility], tel:[phone] [place] ASCAN/topog vonda (chief complaint) No Information 0 Dedrick Jessa. [facility], [address] [place], [place], [facility], . tel:[phone] [facility], [address] [place] [address], [facility], tel:[phone] [place] blurred vision (chief complaint)d iabetic eye exam (chief complaint) Combined forms of age-related cataract, bilateralNonexudative age-related macular degeneration, right eye, early dry stageNonexudative age-related macular degeneration, left eye, intermediate dry stageNodular corneal degeneration, right eye Oct-0 9 Alexander Jessa. [facility], [address] [place], [place], [facility], . tel:[phone] Family History Family Member Type Diagnosis Age At Onset No Information Payers Payer name Insurance type Covered libertarian ID Authoriza tion(s) Medicare Assigned MB [id number] Social History Type Description Quantity Date Captured Comments Sex Female Smoking Status No Information Chief Complaint And Reason For Visit No Information History Of Present Illness Encounter Date Complaint History Of Prese nt Illness diabetic eye health The 82 year old patient presents for evaluation of diabetic eye health in the right eye and left eye. Last A1c around 6.2. OS still more blurry. Prefers to read with left eye closed. OCT macula done today. 3wk cat post op The 79 year old female presents for evaluation of 3wk cat post op in the left eye. Pt states that she has been having difficulty reading words on TV. Pt states that she has not noticed an improvement in her vision in the left eye. (+) Pt is finished with CatarActive3 TID OS. Per COVID-19 protocol, patient was screened at the office prior to their appointment. Temperature was within normal limits. Screening questions were asked and a face mask/covering was worn. 1 Day Cataract Post Op Patient i s here for evaluation of cataract post-op in left eye. Patient denies pain or problems with eye. Is taking CarActive3 eye drops as directed and using shield at night for sleeping. States still having a hard time seeing TV.+Patient's daughter is in the room.COVID 19 Protocol: Patient was screened at the office prior to their appointment. Temperature was within normal limits. Screening questions were asked, and a face mask/covering was worn. 8 month cataract postop The 78 y ear old female presents for evaluation of 8 month cataract postop in the right eye. Delayed due to COVID-19. No noticed vision changes. OD has been watering a lot. OS scheduled 01/24/20.Per COVID19 protocol: Patient was screened at the office prior to their appointment. Temperature was within normal limits. Screening questions were asked and a face mask/covering was worn. 1 day cat p/o OD The 78 year old female presents for evaluation of 1 day cat p/o OD in the right eye. It started about 1 day(s) ago. It affects OD.Pt reports blur, and sensation as if she had rock in her eye yesterday, but resolved. Pt also reports minor fluid leakage.+CatarActive3 gtt, last dose at 3:00 pm. ASCAN/topography blurred vision The 77 year old female presents for evaluation of blurred vision in the right eye and left eye. Progressively worse OU. It has been many years that reading has been difficult. Glasses 8+ years old, not working well. Sees TV better without glasses. Harder to read. +Glare. diabetic eye exam The patient is present for evaluation of diabetic eye exam in the right eye and left eye. Sugars controlled with medication. Last A1 8.4. Does not check sugars regularly. Instructions Date Instruction Additional Infor iqra Impression/Plan - Vi sually significant to patient. PARQ conference done. Patient wishes to proceed with YAG Capsulotomy. Consent given.Second eye needed: yesDiscussed that AMD affects vision too. Related to Other secondary cataract, right eye Impression/Plan - Dr saldana. No signs of subretinal fluid or hemorrhage. AREDS2 vitamins recommended. Amsler grid given. Recommend no smoking. F/u immediately if any new signs of vision loss or changes on Amsler grid. UV light protection.OCT (macula) -01/02/23- OD: 351, areas of disruption of ellipsoid layer, mild ERM with loss of foveal depression. OS: 273, non central atrophy, no fluid. Related to Nonexudative age-related macular degeneration, bilateral, intermediate dry stage Impression/Plan - Mi ld ERM OD.OCT (macula) -01/02/23- OD: 351, areas of disruption of ellipsoid layer, mild ERM with loss of foveal depression. OS: 273, non central atrophy, no fluid. Related to Puckering of macula, right eye Impression/Plan - No diabetic retinopathy or clinically significant macular edema. Discussed ways that diabetes can affect the eyes, treatments, and benefits of blood sugar control. Letter to PCP. Related to Type 2 diabetes mellitus without complications Impression/Plan - Sh e notes that as a child she had an injury when bleach was splashed in her eye. Related to Nodular corneal degeneration, right eye Impression/Plan - Do ing well after cataract surgery in both eyes. Finish the 4 week course of CatarActive3 (moxifloxacin/bromfenac/dexamethasone) as directed. Glasses prescription dispensed.Discussed that there will be an adjustment period with her new glasses. Recommend bifocals. Related to Presence of intraocular lens [facility] with Jessa Tse MD for post op exam. Related to Presence of intraocular lens Impression/Plan - 1 Day s/p cataract surgery with IOL. Wound is sealed, Jace neg. IOL centered. Continue drops as directed. Shield qhs and protective eyewear during the day for 1 week. Discussed warning symptoms and call immediately to be seen if should occur. Return for post-op as scheduled. Related to Presence of intraocular lens Impression/Plan - PA RQ was held for cataract surgery with IOL. We discussed risks including infection, bleeding, swelling, inflammation, retinal detachment, delayed healing, need for additional surgery, unintended refractive outcome, loss of vision, increased eye pressure, glare, and other associated risks of surgery. We discussed needing glasses to see most clearly and option of presbyopia-assisting IOLs and astigmatism correction. We discussed ocular issues that could limit final vision. Was given the chance to ask questions, and expressed understanding of these risks.Surgery eye: leftIOL: [id number] for: distance Related to Combined forms of age-related cataract, left eye Impression/Plan - Do ing well after cataract surgery. She finished the 4 week course of CatarActive3 (moxifloxacin/bromfenac/dexamethasone). Related to Presence of intraocular lens Return in [facility] ed with Jessa Tse MD for post op exam. Related to Presence of intraocular lens Impression/Plan - 1 Day s/p cataract surgery with IOL. Wound is sealed, Jace neg. IOL centered. Continue drops as directed. Shield qhs and protective eyewear during the day for 1 week. Discussed warning symptoms and call immediately to be seen if should occur. Return for post-op as scheduled. Related to Presence of intraocular lens Follow up - Return i n as scheduled with Jessa Tse MD for post op exam. Related to Presence of intraocular lens Follow up - Schedule cataract surgery right eye Impression/Plan - PA RQ was held for cataract surgery with IOL. We discussed risks including infection, bleeding, swelling, inflammation, retinal detachment, delayed healing, need for additional surgery, unintended refractive outcome, loss of vision, increased eye pressure, glare, and other associated risks of surgery. We discussed needing glasses to see most clearly and option of presbyopia-assisting IOLs and astigmatism correction. We discussed ocular issues that could limit final vision. Was given the chance to ask questions, and expressed understanding of these risks.Surgery eye: rightIOL: [id number] for: distanceTypically glasses are used: Is cataract surgery needed for the 2nd eye: yesConsent: Sent home with patient.Discussed that toric IOL may not be a good option due to corneal nodules OU. Related to Combined forms of age-related cataract, bilateral Oct- Impression/Plan - Bryan reece notes that as a child she had an injury when bleach was splashed in her eye. Related to Nodular corneal degeneration, right eye Oct- Impression/Plan - Dr saldana. No signs of subretinal fluid or hemorrhage. AREDS2 vitamins recommended. Amsler grid given. Recommend no smoking. F/u immediately if any new signs of vision loss or changes on Amsler grid. UV light protection.OCT (macula) -11/19/18 - OD: 291, areas of disruption of ellipsoid layer, mild ERM. OS: 273, non central atrophy, no fluid. Related to Nonexudative age-related macular degeneration, right eye, early dry stage Assessments Type Assessment Date No Information
[2025-02-15] VITALS (21 sets, daily range): BP systolic 76–136; BP diastolic 47–67; PULSE 59–79; RESP 12–22; TEMP 36.7; O2SAT 93–100; BMI 27.2
--- NOTE | 2025-02-15 12:12 | ED.FALL ---
HPI - Fall <Jo Elias PA-C - Last Filed: 02/16/25 10:31> General Chief Complaint: Extremity Injury, Lower Stated Complaint: left knee and leg pain 6 days Time Seen by Provider: 02/15/25 11:48 History of Present Illness HPI Narrative: Ms. Pickering is a pleasant 84-year-old female with a past medical history CAD, AFib on Eliquis, cardiac defibrillator, hearing loss, diabetes, who presents to the emergency department with her daughter for concern of left knee and leg pain x6 days. Patient is here with her daughter, she does live at an assisted living facility, [facility]. Patient states that on she had an episode where her left knee ?gave out? on her causing her to slip on a rug. She developed immediate pain of the left knee. She did not fall to the ground or hit her head, but her L knee did twist. She has been using ice and heat however despite this her left knee pain actually got a bit worse today. Her daughter contributes to the history that about 2 weeks ago the patient actually had a slip and fall at her facility and EMS came and evaluated the patient and she was cleared. Unclear if she had a head strike at that time but sounds like there was no visible injuries. However patient was having some mild right hip pain after that over the last 2 weeks which has since resolved. At this time the patient reports left ankle, left knee pain and occasional left hip pain. Daughter is concerned about her right hip and about possibly hitting her head. Patient states since coming to the ER she started to develop a headache on the back of her head since lying in his bed. Patient denies chest pain, difficulty breathing, coughing, fevers, chills, nausea, vomiting, abdominal pain, arm pain, neck pain. She is hard of hearing but is able to provide her own clear history. Related Data Home Medications ?Medication ?Instructions ?Recorded ?Confirmed apixaban 5 mg tablet (Eliquis) 2.5 mg PO BID 02/03/24 11/11/24 magnesium oxide 400 mg PO DAILY 02/03/24 11/11/24 sacubitril 49 mg-valsartan 51 mg 0.5 tab PO BID 02/03/24 11/11/24 tablet (Entresto) Previous Rx's ?Medication ?Instructions ?Recorded diphenoxylate-atropine 2.5 1 tab PO Q6H PRN diarrhea #120 tabs 07/10/23 mg-0.025 mg tablet sitagliptin phosphate 100 mg 100 mg PO DAILY #90 tabs 09/01/23 tablet (Januvia) hydrocortisone 2.5 % topical cream 1 applic topical BID PRN 09/14/23 hemorrhoids #453.6 grams hydrocortisone acetate 25 mg 25 mg HI ONCE PM #24 supp 03/01/24 rectal suppository cefdinir 300 mg capsule 300 mg PO BID #10 caps 03/02/24 gabapentin 100 mg capsule 100 mg PO DAILY #20 caps 06/15/24 estradiol 0.01% (0.1 mg/gram) 1 g vaginal DAILY 14 days #42.5 06/23/24 vaginal cream grams carvedilol 12.5 mg tablet 12.5 mg PO BID #180 tabs 07/07/24 empagliflozin 25 mg tablet 25 mg PO DAILY #90 tabs 09/15/24 atorvastatin 40 mg tablet 40 mg PO DAILY #90 tabs 10/03/24 levetiracetam 1,000 mg tablet 500 mg (1/2 x 1,000 mg) PO BID #90 11/07/24 tabs spironolactone 25 mg tablet 12.5 mg (1/2 x 25 mg) PO .qd #45 12/19/24 tabs cholecalciferol (vitamin D3) 50 50 mcg PO DAILY #90 caps 01/02/25 mcg (2,000 unit) capsule duloxetine 30 mg capsule,delayed 30 mg PO BID #180 caps 01/02/25 release cefuroxime axetil 500 mg tablet 500 mg PO BID 7 days #14 tabs 02/15/25 Allergies Allergy/AdvReac Type Severity Reaction Status Date / Time No Known Drug Allergies Allergy Verified 02/15/25 12:15 Review of Systems <Jo Elias PA-C - Last Filed: 02/16/25 10:31> Review of Systems ROS Unobtainable: All systems reviewed & are unremarkable except as noted in HPI and below Patient History <Jo Elias PA-C - Last Filed: 02/16/25 10:31> Medical History Seborrheic keratosis Cardiac defibrillator in place Hemorrhoids Constipation Osteoarthritis involving multiple joints on both sides of body Vitamin D deficiency Vitamin B12 deficiency Fatigue Microscopic colitis Chronic neck pain Depression Hearing loss (~2011) Frequent diarrhea (~2021) History of urinary incontinence (~1989) Frequent UTI Vomiting (~2020) Diabetes mellitus (~2001) Myocardial infarction Systolic heart failure Deep vein thrombosis Coronary artery disease (~2002) Cardiac arrhythmia Atrial fibrillation Surgical History Anesthesia History of hysterectomy (~1982) History of partial colectomy (~1991) History of hip replacement (~2012) History of knee replacement (~2010) History of quadruple bypass (~2002) Family History Father History of heart disease Mother History of heart disease Social History Smoking Status: Former smoker Exam <Jo Elias PA-C - Last Filed: 02/16/25 10:31> Narrative Exam Narrative: GENERAL: 84 year old patient appears stated age. Elderly frail patient, in no acute distress. HEAD: Atraumatic. Normocephalic. No visible or palpable scalp lesions. EYES: PERRL. Extraocular motions intact. No scleral icterus. No injection or drainage. ENT: Hard of hearing, hearing aids intact. Nose without bleeding, purulent drainage. Throat without erythema, tonsillar hypertrophy or exudate. Airway patent. Dentures in place. NECK: Trachea midline. Cervical ROM intact. No midline cervical tenderness. CARDIOVASCULAR: Regular rate RESPIRATORY: ?Nonlabored respirations. ?Speaking in clear, full sentences. ?Clear to auscultation. Breath sounds equal bilaterally. No wheezes, rales, or rhonchi. ? GASTROINTESTINAL: Abdomen soft, non-tender, nondistended. Bs present. EXTREMITIES: No obvious deformity of left leg. Tenderness to palpation of left ankle medial malleolus, lateral left knee. No open wounds. No calf edema. Brisk cap refill in the toes. 5/5 bilateral foot plantar and dorsiflexion. BACK: No back bruising or tenderness. NEURO: AOx3. ?Clear speech. Sensation intact to light touch on bilateral lower and upper extremities. No facial asymmetry. No pronator drift of either leg while lying in the bed. SKIN: No rash or erythema of visible areas Initial Vital Signs Initial Vital Signs: Vital Signs Pulse Rate 79 02/15/25 11:59 Pulse Oximetry 95 02/15/25 11:59 <Dari Carr MD - Last Filed: 02/17/25 01:29> Initial Vital Signs Initial Vital Signs: Vital Signs Pulse Rate 79 02/15/25 11:59 Pulse Oximetry 95 02/15/25 11:59 Course <Jo Elias PA-C - Last Filed: 02/16/25 10:31> Orders Ordered: Discontinued Medications Acetaminophen (Acetaminophen 325 Mg Tablet) 650 mg PO NOW ONE Stop: 02/15/25 12:47 Last Admin: 02/15/25 13:36 Dose: 650 mg Documented By: MICAH Sodium Chloride (Normal Saline 0.9%) 500 mls @ 500 mls/hr IV BOLUS PRN PRN Reason: Fluid replacement Last Infusion: 02/15/25 14:51 Dose: Infused Documented By: Admin: 02/15/25 13:38 Dose: 500 mls/hr Documented By: MICAH Vital Signs Vital signs: Vital Signs - 8 hr 02/15/25 11:59 02/15/25 12:00 02/15/25 12:07 Temperature Pulse Rate 79 79 Respiratory Rate 18 Blood Pressure 89/48 L Pulse Oximetry 95 96 Oxygen Delivery Method Room Air 02/15/25 12:07 02/15/25 12:15 02/15/25 12:30 Temperature 98.0 F Pulse Rate 78 67 Respiratory Rate 18 Blood Pressure 89/48 L 93/50 L Pulse Oximetry 93 94 Oxygen Delivery Method Room Air 02/15/25 12:30 02/15/25 13:26 02/15/25 13:30 Temperature Pulse Rate 70 67 63 Respiratory Rate Blood Pressure Pulse Oximetry 93 95 97 Oxygen Delivery Method 02/15/25 13:43 02/15/25 13:43 02/15/25 14:00 Temperature Pulse Rate 59 L 69 Respiratory Rate Blood Pressure 76/51 L Pulse Oximetry 100 100 Oxygen Delivery Method 02/15/25 14:05 02/15/25 14:05 Temperature Pulse Rate 70 Respiratory Rate Blood Pressure 101/47 L Pulse Oximetry 98 Oxygen Delivery Method <Dari Carr MD - Last Filed: 02/17/25 01:29> Orders Ordered: Discontinued Medications Acetaminophen (Acetaminophen 325 Mg Tablet) 650 mg PO NOW ONE Stop: 02/15/25 12:47 Last Admin: 02/15/25 13:36 Dose: 650 mg Documented By: MICAH Sodium Chloride (Normal Saline 0.9%) 500 mls @ 500 mls/hr IV BOLUS PRN PRN Reason: Fluid replacement Last Infusion: 02/15/25 14:51 Dose: Infused Documented By: Admin: 02/15/25 13:38 Dose: 500 mls/hr Documented By: MICAH Vital Signs Vital signs: Vital Signs - 8 hr 02/15/25 11:59 02/15/25 12:00 02/15/25 12:07 Temperature Pulse Rate 79 79 Respiratory Rate 18 Blood Pressure 89/48 L Pulse Oximetry 95 96 Oxygen Delivery Method Room Air 02/15/25 12:07 02/15/25 12:15 02/15/25 12:30 Temperature 98.0 F Pulse Rate 78 67 Respiratory Rate 18 Blood Pressure 89/48 L 93/50 L Pulse Oximetry 93 94 Oxygen Delivery Method Room Air 02/15/25 12:30 02/15/25 13:26 02/15/25 13:30 Temperature Pulse Rate 70 67 63 Respiratory Rate Blood Pressure Pulse Oximetry 93 95 97 Oxygen Delivery Method 02/15/25 13:43 02/15/25 13:43 02/15/25 14:00 Temperature Pulse Rate 59 L 69 Respiratory Rate Blood Pressure 76/51 L Pulse Oximetry 100 100 Oxygen Delivery Method 02/15/25 14:05 02/15/25 14:05 Temperature Pulse Rate 70 Respiratory Rate Blood Pressure 101/47 L Pulse Oximetry 98 Oxygen Delivery Method MDM - Fall <Jo Elias PA-C - Last Filed: 02/16/25 10:31> Medical Records Attestation: I reviewed the patient's medical records. Lab Data 02/15/25 12:42 02/15/25 12:42 Labs: Lab Results 02/15/25 02/15/25 02/15/25 Range/Units 12:42 15:00 15:29 WBC 6.0 (4.5-11.0) X10^3/uL RBC 4.46 (4.0-5.2) X10^6/uL Hgb 12.9 (12.0-16.0) g/dL Hct 39.3 (36-46) % MCV 88.2 (80-100) fL MCH 28.9 (26-34) PG MCHC 32.8 (30-36) % RDW 15.2 H (11.6-14.8) % Plt Count 143 L (150-400) X10^3/uL Neut % (Auto) 72.9 (50-75) % Lymph % (Auto) 17.2 L (25-40) % [place] % (Auto) 7.3 (3-14) % Eos % (Auto) 1.6 L (2-4) % Baso % (Auto) 1.0 (0-2) % Neut # (Auto) 4400 (2962-3726) /uL Lymph # (Auto) 1000 L (8268-0206) /uL [place] # (Auto) 400 (0-900) /uL Eos # (Auto) 100 (0-450) /uL Baso # (Auto) 100 (0-100) /uL PT 14.0 H (9.4-12.5) SECONDS INR 1.2 (0.9-1.3) APTT 33 (25.1-36.5) SECONDS Sodium 139 (137-145) mmol/L Potassium 4.5 (3.4-5.1) mmol/L Chloride 106 (98-107) mmol/L Carbon Dioxide 22 (22-32) mmol/L BUN 27 H (7-17) mg/dL Creatinine 0.94 (0.52-1.04) mg/dL Estimated GFR > 60 (>60) mL/min BUN/Creatinine Ratio 28.7 H (6-22) Glucose 231 H (70-99) mg/dL Lactate 1.0 (0.7-2.1) mmol/L Calcium 8.9 (8.4-10.2) mg/dL Magnesium 2.1 (1.6-2.3) mg/dL Total Bilirubin 1.2 (0.2-1.3) mg/dL AST 26 (14-36) IU/L ALT 21 (<35) IU/L Alkaline Phosphatase 57 (38-126) U/L Troponin I < 0.012 (0.01-0.034) ng/mL NT-Pro-B Natriuret Pep 959 H (<450) pg/mL Total Protein 6.7 (6.3-8.2) g/dL Albumin 4.1 (3.5-5.0) g/dL Globulin 2.6 (1.7-4.1) g/dL Albumin/Globulin Ratio 1.6 (1.0-2.8) Urine RBC None seen (0-5/HPF) Urine WBC 10-30/hpf H (0-5/HPF) Ur Squamous Epith Cells 0-1 /hpf (0-5/HPF) Urine Bacteria Moderate (10-30) H (None) Urine Yeast 1-5/hpf H (None) Ur Culture Indicated? Specimen cultured Vol Urine Centrifuged 10ml (spun) Urine Dip Bedside Urine Glucose 1000 mg/dl Bedside Urine Bilirubin - Negative Bedside Urine Ketone - Negative Urine Specific [place] 1.015 Bedside Urine Occult Blood + Bedside Urine pH 6.0 Bedside Urine Protein - Negative Bedside Urine Urobilinogen - Negative Bedside Urine Nitrite - Negative Bedside Urine Leukocytes + 70 Esterase Imaging Data Chest x-ray: Radiologist's Impression: PROCEDURE: XR CHEST 1V INDICATIONS: asymptomatic hypotension TECHNIQUE: One view of the chest was acquired. COMPARISON: [facility], , XR CHEST 1V, 07/04/2024, 19:24. FINDINGS: Surgical changes and devices: Left chest wall generator with cardiac leads. Sternotomy . Lungs and pleura: Lungs are clear. No pleural effusions or pneumothorax. Mediastinum: Mediastinal contours appear normal. Heart size is normal. Bones and chest wall: No suspicious bony lesions. Overlying soft tissues appear unremarkable. IMPRESSION: No acute cardiopulmonary abnormality is seen. Dictated by: Jm Webster M.D. on 02/15/2025 at 13:41 Approved by: Jm Webster M.D. on 02/15/2025 at 13:42 Left Knee X-Ray: Radiologist's Impression: PROCEDURE: XR KNEE LT 3V INDICATIONS: fall; lateral knee pain TECHNIQUE: 3 views of the knee were acquired. COMPARISON: None. FINDINGS: Bones: No acute fractures or dislocations. No suspicious bony lesions. Moderate to severe joint space narrowing at the lateral femorotibial compartment subchondral sclerosis and remodeling of the articular surfaces. Moderate medial and anterior compartment joint space narrowing and tricompartmental marginal osteophytes. Suprapatellar enthesophyte is present. Soft tissues: No joint effusion. No suspicious soft tissue calcifications. IMPRESSION: No acute osseous abnormality. If there is continued clinical concern or persistent symptoms, repeat radiographs or cross-sectional imaging (e.g. CT, MRI) may be helpful for further evaluation. Tricompartmental osteoarthrosis. Approved by: Haroldo Terrell M.D. on 02/15/2025 at 13:57 Pelvis & L Hip X-Ray: Radiologist's Impression: PROCEDURE: XR HIP W PEL IF DONE LT 2V INDICATIONS: fall; occasional R and L hip pain mainly L TECHNIQUE: AP pelvis with lateral view of the left hip. COMPARISON: None. 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 No acute osseous fracture or dislocation. Multilevel degenerative changes are seen in the spine and right hip. Pelvic ring appears intact. No suspicious bony lesions. Soft tissues: The visualized bowel gas pattern is normal. No suspicious soft tissue calcifications. Surgical clips project over the pelvis. IMPRESSION: Postsurgical changes from left hip arthroplasty. No acute osseous abnormality. If there is continued clinical concern or persistent symptoms, repeat radiographs or cross-sectional imaging (e.g. CT, MRI) may be helpful for further evaluation. Approved by: Haroldo Terrell M.D. on 02/15/2025 at 13:55 CT scan - head: Radiologist's Impression: PROCEDURE: CT HEAD/BRAIN WO CON INDICATIONS: possible fall 2 weeks ago? left leg weakness TECHNIQUE: Noncontrast 4.5 mm thick angled axial sections acquired from the foramen magnum to the vertex, with coronal and sagittal reformats. For radiation dose reduction, the following was used: automated exposure control, adjustment of mA and/or kV according to patient size. COMPARISON: [facility], CT, CT HEAD/BRAIN WO CON, 09/13/2022, 9:24. FINDINGS: Image quality: Diagnostic. CSF spaces: Basal cisterns are patent. No extra-axial fluid collections. The ventricles are symmetric in size and shape. Brain: No intracranial bleeds or mass effect. There is cerebral volume loss, with resultant ventricular and sulcal prominence. There are periventricular and deep white matter chronic small vessel ischemic changes. There is intracranial internal carotid artery atherosclerosis. Skull and face: Calvarium and visualized facial bones appear intact, without suspicious lesions. Sinuses: Visualized sinuses and mastoids are clear. IMPRESSION: No acute intracranial pathology. Dictated by: Aj Delarosa M.D. on 02/15/2025 at 13:07 Approved by: Aj Delarosa M.D. on 02/15/2025 at 13:08 CT - cervical spine: Radiologist's Impression: PROCEDURE: CT CERVICAL SPINE WO CON INDICATIONS: possible fall 2 weeks ago posterior ARIAS TECHNIQUE: Noncontrast 3 mm thick sections acquired from the skull base to the T4 level. Sagittal and coronal reformats were then constructed. For radiation dose reduction, the following was used: automated exposure control, adjustment of mA and/or kV according to patient size. COMPARISON: None. FINDINGS: Image quality: Excellent. Bones: No fractures or dislocations. Visualized superior ribs are intact. Soft tissues: Prevertebral soft tissues are normal in thickness. No paravertebral hematomas. No apical pneumothoraces. IMPRESSION: No displaced fracture or traumatic subluxation. 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 Dictated by: Aj Delarosa M.D. on 02/15/2025 at 13:09 Approved by: Aj Delarosa M.D. on 02/15/2025 at 13:11 [facility] Narrative Medical decision making narrative: 84-year-old female with a past medical history CAD, AFib on Eliquis, cardiac defibrillator, hearing loss, diabetes, who presents to the emergency department with her daughter for concern of left knee and leg pain x6 days. Differential diagnosis includes but is not limited to left knee fracture, sprain, strain, left ankle fracture, sprain, strain, hip fracture, sprain, contusion, ground level fall, intracerebral abnormality, UTI etc. On exam patient is in no acute distress, nontoxic appearing, vital signs reveal low blood pressure otherwise normal, appears patient does have baseline low blood pressure. Patient is adamant that she did not have any falls or hit her head and that she is only having left leg pain however her daughter is concerned that about 2 weeks ago she had a fall where she might have hit her head and then she had a secondary slip resulting in her left leg pain. Daughter states patient has been somewhat dragging/reluctant to move her left leg and is worried about her head. Patient is a good historian and is able to answer questions appropriately. We will obtain baseline labs given low blood pressure and CT scan of head and cervical spine and an x-ray of the pelvis left knee and ankle and treat with Tylenol and gentle fluids at this time. 1530: Printed and reviewed all imaging with the patient and her daughter. She is feeling well and blood pressure improved at this time. Awaiting a few labs. Labs overall reassuring. Normal WBC count 6.0, hemoglobin 12.9 hematocrit 39 point 3. Slightly low platelets 143. Normal sodium 139 potassium 4.5 magnesium 2.1. Slightly elevated BUN 27, normal creatinine 0.94. Glucose elevated 231, patient states she just ate ice cream, she does have [id number] type 2 diabetes. BNP elevated 959. Troponin undetectable. Urinalysis does reveal WBCs and moderate bacteria. We will treat UTI with cefuroxime while culture is pending. Normal lactate 1.0. Head CT reveals no acute intracranial pathology. Cervical spine CT reveals no displaced fracture or traumatic subluxation but there is chronic appearing moderately severe mid cervical degenerative disc disease. Pelvis/hip x-ray reveals no acute osseous abnormality, there is multilevel degenerative changes. Left knee x-ray reveals no acute osseous abnormality but there is moderate to severe tricompartmental osteoarthrosis. Chest x-ray reveals no acute cardiopulmonary abnormality. All workup today reviewed with the patient and daughter including degenerative findings to left leg, UTI, elevated blood glucose. Patient is feeling much better after ED treatment. Drew wrap applied to left knee. Encourage follow up with PCP who may recommend physical therapy or referral to Orthopedics for further management of severe left knee arthritis. Patient and daughter verbalized understanding of all information and are happy with the plan. Patient is stable for discharge home, all VS WNL. <Dari Carr MD - Last Filed: 02/17/25 01:29> Lab Data Labs: Lab Results 02/15/25 02/15/25 02/15/25 Range/Units 12:42 15:00 15:29 WBC 6.0 (4.5-11.0) X10^3/uL RBC 4.46 (4.0-5.2) X10^6/uL Hgb 12.9 (12.0-16.0) g/dL Hct 39.3 (36-46) % MCV 88.2 (80-100) fL MCH 28.9 (26-34) PG MCHC 32.8 (30-36) % RDW 15.2 H (11.6-14.8) % Plt Count 143 L (150-400) X10^3/uL Neut % (Auto) 72.9 (50-75) % Lymph % (Auto) 17.2 L (25-40) % [place] % (Auto) 7.3 (3-14) % Eos % (Auto) 1.6 L (2-4) % Baso % (Auto) 1.0 (0-2) % Neut # (Auto) 4400 (8087-2006) /uL Lymph # (Auto) 1000 L (3181-4116) /uL [place] # (Auto) 400 (0-900) /uL Eos # (Auto) 100 (0-450) /uL Baso # (Auto) 100 (0-100) /uL PT 14.0 H (9.4-12.5) SECONDS INR 1.2 (0.9-1.3) APTT 33 (25.1-36.5) SECONDS Sodium 139 (137-145) mmol/L Potassium 4.5 (3.4-5.1) mmol/L Chloride 106 (98-107) mmol/L Carbon Dioxide 22 (22-32) mmol/L BUN 27 H (7-17) mg/dL Creatinine 0.94 (0.52-1.04) mg/dL Estimated GFR > 60 (>60) mL/min BUN/Creatinine Ratio 28.7 H (6-22) Glucose 231 H (70-99) mg/dL Lactate 1.0 (0.7-2.1) mmol/L Calcium 8.9 (8.4-10.2) mg/dL Magnesium 2.1 (1.6-2.3) mg/dL Total Bilirubin 1.2 (0.2-1.3) mg/dL AST 26 (14-36) IU/L ALT 21 (<35) IU/L Alkaline Phosphatase 57 (38-126) U/L Troponin I < 0.012 (0.01-0.034) ng/mL NT-Pro-B Natriuret Pep 959 H (<450) pg/mL Total Protein 6.7 (6.3-8.2) g/dL Albumin 4.1 (3.5-5.0) g/dL Globulin 2.6 (1.7-4.1) g/dL Albumin/Globulin Ratio 1.6 (1.0-2.8) Urine RBC None seen (0-5/HPF) Urine WBC 10-30/hpf H (0-5/HPF) Ur Squamous Epith Cells 0-1 /hpf (0-5/HPF) Urine Bacteria Moderate (10-30) H (None) Urine Yeast 1-5/hpf H (None) Ur Culture Indicated? Specimen cultured Vol Urine Centrifuged 10ml (spun) Urine Dip Bedside Urine Glucose 1000 mg/dl Bedside Urine Bilirubin - Negative Bedside Urine Ketone - Negative Urine Specific [place] 1.015 Bedside Urine Occult Blood + Bedside Urine pH 6.0 Bedside Urine Protein - Negative Bedside Urine Urobilinogen - Negative Bedside Urine Nitrite - Negative Bedside Urine Leukocytes + 70 Esterase Discharge Plan Departure Patient Disposition: Home Clinical Impression: Acute UTI, Tricompartment osteoarthritis of left knee Fall from slip, trip, or stumble Qualifiers: Encounter type: initial encounter Qualified Code(s): W01.0XXA - Fall on same level from slipping, tripping and stumbling without subsequent striking against object, initial encounter Left knee sprain Qualifiers: Encounter type: initial encounter Involved ligament of knee: unspecified ligament Qualified Code(s): S83.92XA - Sprain of unspecified site of left knee, initial encounter Instructions: DI for Knee Sprain, DI for Urinary Tract Infection (UTI) Activity Restrictions/Additional Instructions: Dear Raheel, Thank you for coming to the emergency department. I am so sorry that you are having pain in your left leg. As we discussed, you do have a lot of osteoarthritis in the left leg and I also suspect you have a sprain of your left knee. Your workup today did reveal a urinary tract infection as well as elevated blood sugar. Please complete the full course of antibiotics. Please rest, hydrate, use Tylenol as needed for your pain and use the left knee Drew wrap as well for support. Make sure to always use your walker, I do believe he would benefit from physical therapy as well. Please return to ER immediately if you develop any new or worsening symptoms, fevers, severe pain or other concerns. Your antibiotic has been sent to [facility]. Please follow up with your primary care doctor within the next 2-3 days for ER follow-up. (If you do not have a PCP you can call [phone]. ?to schedule an appointment with an [facility] Primary Care Provider) IF YOU DEVELOP ANY NEW OR WORSENING SYMPTOMS, RETURN TO THE ER! Please read the attached instructions, they highlight more specific treatments and interventions for you at home. Thank you for letting me participate in your care, Jo Elias PA-C Prescriptions: New cefuroxime axetil 500 mg tablet 500 mg PO BID 7 Days Qty: 14 0RF No Action Entresto 49-51 mg tablet 0.5 tab PO BID cefdinir 300 mg capsule 300 mg PO BID Qty: 10 0RF diphenoxylate-atropine 2.5-0.025 mg tablet 1 tab PO Q6H PRN (Reason: diarrhea) Qty: 120 2RF Eliquis 5 mg tablet 2.5 mg PO BID magnesium oxide 400 mg magnesium tablet 400 mg PO DAILY Januvia 100 mg tablet 100 mg PO DAILY Qty: 90 0RF hydrocortisone 2.5 % cream 1 applic topical BID MDD 0.5 gram PRN (Reason: hemorrhoids) Qty: 453.6 2RF hydrocortisone acetate 25 mg suppository 25 mg HI ONCE PM Qty: 24 0RF gabapentin 100 mg capsule 100 mg PO DAILY Qty: 20 0RF estradiol 0.01 % (0.1 mg/gram) cream 1 g vaginal DAILY 14 Days Qty: 42.5 3RF carvedilol 12.5 mg tablet 12.5 mg PO BID Qty: 180 0RF empagliflozin 25 mg tablet 25 mg PO DAILY Qty: 90 3RF atorvastatin 40 mg tablet 40 mg PO DAILY Qty: 90 0RF levetiracetam 1,000 mg tablet 500 mg PO BID Qty: 90 1RF spironolactone 25 mg tablet 12.5 mg PO .qd Qty: 45 0RF duloxetine 30 mg capsule,delayed release(DR/EC) 30 mg PO BID Qty: 180 0RF cholecalciferol (vitamin D3) 50 mcg (2,000 unit) capsule 50 mcg PO DAILY Qty: 90 0RF Referrals: Kelly Lazar MD [Primary Care Provider, Family Practice] Stand Alone Forms: Patient Portal/API ED Sign-out <Dari Carr MD - Last Filed: 02/17/25 01:29> Cosign ED Attending Cosignature Attestation: I did not personally see or examine the patient but was available for consultation and supervision throughout the encounter. I reviewed the documentation and agree with the assessment and plan as written. Dari Carr MD Emergency Medicine
--- NOTE | 2025-02-15 12:25 | PC.NURSE ---
After triage, pt's daughter states they were sent to ED by PCP d/t concerns for her Mom falling and possibly hitting her head. Verified concern w/pt who is AOx4. Pt states with certainty she slipped but never fell and denies hitting her head or LOC. Pt further states it is policy for the place where she lives to call 911 endorsing paramedics where called at the time of incident, she was assessed, not transported and referred to PCP for outpatient imaging. Primary nurse and JUANA Chisholm notified.
--- NOTE | 2025-02-15 12:46 | DI.RAD.S_ITS ---
PROCEDURE: XR ANKLE LT MIN 3V INDICATIONS: fall; medial ankle pain TECHNIQUE: 3 views of the ankle were acquired. COMPARISON: None. FINDINGS: Bones: No acute fractures or dislocations. Ankle mortise is normally aligned. No suspicious bony lesions. Posterior and plantar calcaneal enthesophytes are present. Soft tissues: No tibiotalar joint effusion. Achilles tendon appears normal. IMPRESSION: No acute bony abnormality or significant effusion. Approved by: Haroldo Terrell M.D. on 02/15/2025 at 13:53
--- NOTE | 2025-02-15 12:46 | DI.CT.S_ITS ---
PROCEDURE: CT HEAD/BRAIN WO CON INDICATIONS: possible fall 2 weeks ago? left leg weakness TECHNIQUE: Noncontrast 4.5 mm thick angled axial sections acquired from the foramen magnum to the vertex, with coronal and sagittal reformats. For radiation dose reduction, the following was used: automated exposure control, adjustment of mA and/or kV according to patient size. COMPARISON: [facility], CT, CT HEAD/BRAIN WO CON, 09/13/2022, 9:24. FINDINGS: Image quality: Diagnostic. CSF spaces: Basal cisterns are patent. No extra-axial fluid collections. The ventricles are symmetric in size and shape. Brain: No intracranial bleeds or mass effect. There is cerebral volume loss, with resultant ventricular and sulcal prominence. There are periventricular and deep white matter chronic small vessel ischemic changes. There is intracranial internal carotid artery atherosclerosis. Skull and face: Calvarium and visualized facial bones appear intact, without suspicious lesions. Sinuses: Visualized sinuses and mastoids are clear. IMPRESSION: No acute intracranial pathology. Dictated by: Aj Delarosa M.D. on 02/15/2025 at 13:07 Approved by: Aj Delarosa M.D. on 02/15/2025 at 13:08
--- NOTE | 2025-02-15 12:46 | DI.RAD.S_ITS ---
PROCEDURE: XR HIP W PEL IF DONE LT 2V INDICATIONS: fall; occasional R and L hip pain mainly L TECHNIQUE: AP pelvis with lateral view of the left hip. COMPARISON: None. 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 No acute osseous fracture or dislocation. Multilevel degenerative changes are seen in the spine and right hip. Pelvic ring appears intact. No suspicious bony lesions. Soft tissues: The visualized bowel gas pattern is normal. No suspicious soft tissue calcifications. Surgical clips project over the pelvis. IMPRESSION: Postsurgical changes from left hip arthroplasty. No acute osseous abnormality. If there is continued clinical concern or persistent symptoms, repeat radiographs or cross-sectional imaging (e.g. CT, MRI) may be helpful for further evaluation. Approved by: Haroldo Terrell M.D. on 02/15/2025 at 13:55
--- NOTE | 2025-02-15 12:46 | DI.RAD.S_ITS ---
PROCEDURE: XR KNEE LT 3V INDICATIONS: fall; lateral knee pain TECHNIQUE: 3 views of the knee were acquired. COMPARISON: None. FINDINGS: Bones: No acute fractures or dislocations. No suspicious bony lesions. Moderate to severe joint space narrowing at the lateral femorotibial compartment subchondral sclerosis and remodeling of the articular surfaces. Moderate medial and anterior compartment joint space narrowing and tricompartmental marginal osteophytes. Suprapatellar enthesophyte is present. Soft tissues: No joint effusion. No suspicious soft tissue calcifications. IMPRESSION: No acute osseous abnormality. If there is continued clinical concern or persistent symptoms, repeat radiographs or cross-sectional imaging (e.g. CT, MRI) may be helpful for further evaluation. Tricompartmental osteoarthrosis. Approved by: Haroldo Terrell M.D. on 02/15/2025 at 13:57
--- NOTE | 2025-02-15 12:46 | DI.CT.S_ITS ---
PROCEDURE: CT CERVICAL SPINE WO CON INDICATIONS: possible fall 2 weeks ago posterior ARIAS TECHNIQUE: Noncontrast 3 mm thick sections acquired from the skull base to the T4 level. Sagittal and coronal reformats were then constructed. For radiation dose reduction, the following was used: automated exposure control, adjustment of mA and/or kV according to patient size. COMPARISON: None. FINDINGS: Image quality: Excellent. Bones: No fractures or dislocations. Visualized superior ribs are intact. Soft tissues: Prevertebral soft tissues are normal in thickness. No paravertebral hematomas. No apical pneumothoraces. IMPRESSION: No displaced fracture or traumatic subluxation. 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 Dictated by: Aj Delarosa M.D. on 02/15/2025 at 13:09 Approved by: Aj Delarosa M.D. on 02/15/2025 at 13:11
--- NOTE | 2025-02-15 12:51 | PC.NURSE ---
provider r/o the need to call for modified trauma. pt insists she didn't her head. denies head pain, neck pain.
[2025-02-15 12:56] LABS: Add Manual Diff / Slide Review NO; Hematocrit 39.3 % (36-46); Hemoglobin 12.9 g/dL (12.0-16.0); Lymphocytes Absolute Auto 1000 /uL (1100-4500); Mean Corpuscular HGB Conc 32.8 % (30-36); Mean Corpuscular Hemoglobin 28.9 PG (26-34); Mean Corpuscular Volume 88.2 fL (80-100); Platelet Count 143 X10^3/uL (150-400)
[2025-02-15 13:01] LABS: INR 1.2 (0.9-1.3); Prothrombin Time 14.0 SECONDS (9.4-12.5)
[2025-02-15 13:04] LABS: PTT Partial Thromboplastin Tim 33 SECONDS (25.1-36.5)
[2025-02-15 13:07] LABS: Alanine Aminotransferase 21 IU/L (<35); Albumin 4.1 g/dL (3.5-5.0); Albumin Globulin Ratio 1.6 (1.0-2.8); Alkaline Phosphatase 57 U/L (38-126); Blood Urea Nitrogen 27 mg/dL (7-17); Calcium 8.9 mg/dL (8.4-10.2); Carbon Dioxide 22 mmol/L (22-32); Chloride 106 mmol/L (98-107); Estimated Glomerular Filt Rate > 60 mL/min (>60); Globulin 2.6 g/dL (1.7-4.1); Glucose 231 mg/dL (70-99); HEMOLYSIS 20 (0-50); Potassium 4.5 mmol/L (3.4-5.1); Sodium 139 mmol/L (137-145); Total Protein 6.7 g/dL (6.3-8.2)
[2025-02-15] MEDS: ACETAMINOPHEN 325 MG TABLET 650 MG PO (13:36)
[2025-02-15] MEDS: SODIUM CHLORIDE 0.9% 500 ML IV (13:38)
--- NOTE | 2025-02-15 13:58 | DI.RAD.S_ITS ---
PROCEDURE: XR CHEST 1V INDICATIONS: asymptomatic hypotension TECHNIQUE: One view of the chest was acquired. COMPARISON: [facility], CR, XR CHEST 1V, 07/04/2024, 19:24. FINDINGS: Surgical changes and devices: Left chest wall generator with cardiac leads. Sternotomy . Lungs and pleura: Lungs are clear. No pleural effusions or pneumothorax. Mediastinum: Mediastinal contours appear normal. Heart size is normal. Bones and chest wall: No suspicious bony lesions. Overlying soft tissues appear unremarkable. IMPRESSION: No acute cardiopulmonary abnormality is seen. Dictated by: Jm Webster M.D. on 02/15/2025 at 13:41 Approved by: Jm Webster M.D. on 02/15/2025 at 13:42
--- NOTE | 2025-02-15 13:58 | EKG_ITS ---
[address] [address] Test Date: 2025-02-15 Pat Name: Cassidy Pickering Department: [facility] Room: Gender: Female Food Demonstrator: JESSICA : 1940 Requested By: Order Number: [id number] Reading MD: Naresh Mojica Measurements Intervals [place] Rate: 72 P: [place]: QRS: 85 QRSD: 94 T: 84 QT: 426 QTc: 466 Interpretive Statements Undetermined rhythm Cannot rule out Anterior infarct , age undetermined Electronically Signed On 02-15-2025 15:07:16 PST by Naresh Mojica
[2025-02-15 15:38] LABS: Lactate (Lactic Acid) 1.0 mmol/L (0.7-2.1); Magnesium 2.1 mg/dL (1.6-2.3)
[2025-02-15 15:51] LABS: Culture Indicated Urine Specimen Cultured
[2025-02-15 15:51] LABS: NT-proBNP (BNP-Adult 18+) 959 pg/mL (<450); Troponin I < 0.012 ng/mL (0.01-0.034)
== END 2025-02-15 16:55 | disposition home or self-care (01) ==
PROVIDERS: Emergency Provider Physician Assistant; PCP Family Medicine
DX: N39.0 Urinary tract infection, site not specified (principal); S83.92XA Sprain of unspecified site of left knee, initial encounter; M17.12 Unilateral primary osteoarthritis, left knee; M25.552 Pain in left hip; E11.9 Type 2 diabetes mellitus without complications; W01.0XXA Fall on same level from slipping, tripping and stumbling without subsequent striking against object, initial encounter
CPT/HCPCS: 36415; 70450; 71045; 72125; 73502; 73562; 73610; 80053; 81003; 81015; 83605; 83735; 83880; 84484; 85025; 85610; 85730; 87077; 87086; 87186; 93005; 96360; 99284; J7030